=== PATIENT | female | born 1985 | race Caucasian/White ===

== ENCOUNTER 2020-09-21 12:20 | Emergency (ER) | payer SELFPAY ==
[~2020-09-21 12:20] MED LIST: Iopamidol-370 76% 500 ML 1 ML ONE
[2020-09-21 12:44] LABS: #Basophils 0.1 thou/uL (0.0-0.2); #Eosinphils 0.1 thou/uL (0.0-0.7); #Lymphocytes 2.5 thou/uL (1.20-3.40); #Monocytes 0.6 thou/uL (0.11-0.59); #Neutrophils 7.1 thou/uL (1.40-6.50); %Basophils 0.5 % (0.0-1.0); %Eosinophils 0.7 % (0.0-10.0); %Lymphocytes 23.9 % (21.0-51.0); %Monocytes 5.8 % (0.0-10.0); %Neutrophils 69.1 % (42.0-75.0); Hemoglobin 13.6 g/dL (12.0-16.0); Mean Corpuscular HGB CONC 33.5 g/dL (32.0-36.0); Mean Corpuscular Hemoglobin 29.3 pg (27.0-31.0); Mean Corpuscular Volume 87.4 fL (78.0-98.0); Mean Platelet Volume 10.1 fL (7.4-10.4); Platelet Count 207 thou/uL (130-400); Red Blood Cell (RBC) Count 4.64 mill/uL (4.20-5.40); White Blood Cell (WBC) Count 10.3 thou/uL (4.8-10.8)
[2020-09-21 12:58] LABS: ALT (SGPT) 11 U/L (8-55); AST (SGOT) 10 U/L (5-34); Albumin 3.9 g/dL (3.5-5.0); Alkaline Phosphatase 75 U/L (40-110); Anion Gap 11 mmol/L (10-20); BUN (Urea Nitrogen) 5 mg/dL (7.0-18.7); Bilirubin, Total 0.5 mg/dL (0.2-1.2); Calc. Creatinine Clearance 0 mL/min (70-130); Calcium 8.5 mg/dL (7.8-10.44); Carbon Dioxide 25 mmol/L (22-29); Chloride 105 mmol/L (98-107); Globulin 3.1 g/dL (2.4-3.5); Glucose 90 mg/dL (70-105); Lipase 13 U/L (8-78); Potassium 4.1 mmol/L (3.5-5.1); Sodium 137 mmol/L (136-145)
[2020-09-21] MEDS ORDERED: Morphine 4 MG/ML VIAL ONE (12:59)
[2020-09-21] MEDS ORDERED: Ondansetron PF 4 MG/2 ML Vial ONE (12:59)
[2020-09-21 13:26] LABS: Bacteria/HPF 3+ HPF (None Seen); Bilirubin Negative (Negative); Blood, Urine Negative (Negative); Clarity Turbid (Clear); Glucose, Urine (Dipstick) Normal (Negative); Ketone, Urine Negative (Negative); Leukocyte 500 Leu/uL (Negative); Nitrite 2+ (Negative); Protein, Urine (Dipstick) 10 mg/dL (Neg-Trace); Specific Gravity, Urine 1.014 (1.002-1.036); Urobilinogen Normal mg/dL (Less than 2); WBC/HPF Greater than 50 HPF (0-3)
[2020-09-21 13:27] LABS: Pregnancy Test - Urine (BHCG) Negative (Negative); Pregu Control Background? CLEAR/WHITE (CLR/WHITE); Pregu Control Bar Appear? YES (CONTROL BAR); Specific Gravity 1.014 (1.002-1.036)
--- NOTE | 2020-09-21 14:19 | CT ---
EXAM: Abdomen and pelvic CT scan with contrast: HISTORY: Right lower quadrant pain COMPARISON: None FINDINGS: Lungs:No significant acute process. Liver: Unremarkable. Gallbladder:Unremarkable. Common bile duct:Normal Pancreas:Unremarkable Spleen:Unremarkable. Adrenal glands:Unremarkable. Kidneys:No renal calculus or acute obstruction. No solid or cystic renal mass. No evidence for bowel obstruction. Aorta:No evidence for aneurysm. Spine:No significant acute process. Normal-appearing appendix The urinary bladder is unremarkable. Reproductive system:IUD within the uterus. 3.1 cm diameter left ovarian functional follicle cyst. Hernias:None No abscess, adenopathy, or abnormal fluid collection within the abdomen or pelvis. IMPRESSION: No significant acute process in the abdomen or pelvis.
[2020-09-21] MEDS ORDERED: cefTRIAXone\\ROCEPHIN 1 GM VIAL ONE (14:30)
--- NOTE | 2020-09-21 15:42 | ULT ---
Pelvic sonogram transabdominal imaging with duplex evaluation HISTORY: Pelvic pain. Ovarian cyst. FINDINGS: Urinary bladder is unremarkable. Uterus has a heterogeneous echotexture and measures up to 9.7 cm. Endometrium is 0.8 cm. Echogenic structure in the endometrial cavity is consistent with an IUD. No free fluid evident within the pelvis. Right ovary not visualized with transabdominal or transvaginal imaging. No masses evident. Lobular complex cyst of the left ovary measures up to 4.8 cm x 3.9 cm x 3.6 cm.. Some internal debris . Good color and spectral Doppler flow demonstrated within the left ovary. IMPRESSION : Large hemorrhagic left ovarian cyst, 4.8 cm. Intrauterine contraceptive device.
== END 2020-09-21 16:25 | disposition home or self-care (01) ==
LOC: ERS 12:20
DX: N39.0 Urinary tract infection, site not specified (principal); N83.202 Unspecified ovarian cyst, left side
CPT/HCPCS: 36415; 74177; 76856; 80053; 81003; 81015; 81025; 83690; 85025; 96365; 96375; J0696; J2270; J2405; Q9967

== ENCOUNTER 2020-11-11 17:09 | Emergency (ER) | payer SELFPAY ==
--- NOTE | 2020-11-11 17:52 | RAD ---
TWO VIEWS OF THE CHEST: 11/11/20 HISTORY: Mid sternal chest pain for two weeks. FINDINGS: Two views of the chest show normal sized cardiomediastinal silhouette. There is no evidence of consol idation, mass, or pleural effusion. The bones are unremarkable. IMPRESSION: No evidence of acute cardiopulmonary disease. POS: EAA
[2020-11-11 18:39] LABS: #Basophils 0.1 thou/uL (0.0-0.2); #Eosinphils 0.1 thou/uL (0.0-0.7); #Lymphocytes 2.7 thou/uL (1.20-3.40); #Monocytes 0.6 thou/uL (0.11-0.59); #Neutrophils 5.8 thou/uL (1.40-6.50); %Basophils 0.6 % (0.0-1.0); %Eosinophils 1.2 % (0.0-10.0); %Lymphocytes 29.3 % (21.0-51.0); %Monocytes 6.4 % (0.0-10.0); %Neutrophils 62.5 % (42.0-75.0); Mean Corpuscular HGB CONC 32.4 g/dL (32.0-36.0); Mean Corpuscular Hemoglobin 27.9 pg (27.0-31.0); Mean Platelet Volume 10.1 fL (7.4-10.4); Platelet Count 233 thou/uL (130-400); RBC Distribution Width 11.3 % (11.5-14.5); Red Blood Cell (RBC) Count 5.02 mill/uL (4.20-5.40); White Blood Cell (WBC) Count 9.2 thou/uL (4.8-10.8)
[2020-11-11] MEDS ORDERED: Ketorolac Tromethamine 30 MG/ML VIAL ONE (19:01)
--- NOTE | 2020-11-11 19:06 | CT ---
CTA Angio Chest W WO Con 11/11/2020 6:50 PM Indication: 35-year-old female with midsternal chest pain for 2 weeks Technique: Multiple CTA images were obtained of the thorax with IV contrast. 3-D rendering: MIP jamari nstructed images were created and reviewed. Comparison: No relevant prior studies available. Findings: Pulmonary arteries: No central or segmental pulmonary embolus is evident. Heart and Aorta: Normal appearing. Mediastinum:Normal appearing. No enlarged lymph nodes. Lungs:The lungs are clear. Pleural space: Clear. Upper Abdomen: No acute abnormality. Osseous Structures: No acute osseous abnormality. Soft tissues:No abnormality. Other findings:None. Impression: No central or segmental pulmonary embolus.
[2020-11-11 19:08] LABS: ALT (SGPT) 12 U/L (8-55); AST (SGOT) 14 U/L (5-34); Albumin 4.6 g/dL (3.5-5.0); Alkaline Phosphatase 99 U/L (40-110); Anion Gap 11 mmol/L (10-20); BUN (Urea Nitrogen) 8 mg/dL (7.0-18.7); Bilirubin, Total 0.3 mg/dL (0.2-1.2); Calc. Creatinine Clearance 0 mL/min (70-130); Calcium 9.5 mg/dL (7.8-10.44); Carbon Dioxide 27 mmol/L (22-29); Chloride 104 mmol/L (98-107); Globulin 3.2 g/dL (2.4-3.5); Glucose 86 mg/dL (70-105); Potassium 4.2 mmol/L (3.5-5.1); Protein, Total 7.8 g/dL (6.0-8.3); Sodium 138 mmol/L (136-145)
== END 2020-11-11 19:17 | disposition home or self-care (01) ==
LOC: ERS 17:09
DX: R09.1 Pleurisy (principal)
CPT/HCPCS: 36415; 71046; 71275; 80053; 84484; 85025; 93005; 96374; J1885; Q9967

== ENCOUNTER 2021-05-11 19:18 | Emergency (ER) | payer SELFPAY ==
[2021-05-11 20:17] LABS: #Eosinphils 0.1 thou/uL (0.0-0.7); #Lymphocytes 2.6 thou/uL (1.20-3.40); #Monocytes 0.5 thou/uL (0.11-0.59); %Basophils 0.3 % (0.0-1.0); %Eosinophils 0.9 % (0.0-10.0); %Lymphocytes 22.9 % (21.0-51.0); %Monocytes 4.6 % (0.0-10.0); %Neutrophils 71.4 % (42.0-75.0); Hemoglobin 14.9 g/dL (12.0-16.0); Mean Corpuscular HGB CONC 34.8 g/dL (32.0-36.0); Mean Corpuscular Hemoglobin 29.9 pg (27.0-31.0); Mean Corpuscular Volume 85.9 fL (78.0-98.0); Mean Platelet Volume 9.6 fL (7.4-10.4); Platelet Count 256 thou/uL (130-400); RBC Distribution Width 11.4 % (11.5-14.5); Red Blood Cell (RBC) Count 4.99 mill/uL (4.20-5.40); White Blood Cell (WBC) Count 11.2 thou/uL (4.8-10.8)
[2021-05-11 20:41] LABS: ALT (SGPT) 15 U/L (8-55); AST (SGOT) 14 U/L (5-34); Albumin 4.6 g/dL (3.5-5.0); Alkaline Phosphatase 108 U/L (40-110); Anion Gap 11 mmol/L (10-20); BUN (Urea Nitrogen) 7 mg/dL (7.0-18.7); Bilirubin, Total 0.3 mg/dL (0.2-1.2); Calc. Creatinine Clearance 0 mL/min (70-130); Calcium 9.9 mg/dL (7.8-10.44); Carbon Dioxide 25 mmol/L (22-29); Chloride 107 mmol/L (98-107); Globulin 3.5 g/dL (2.4-3.5); Glucose 89 mg/dL (70-105); Potassium 4.1 mmol/L (3.5-5.1); Protein, Total 8.1 g/dL (6.0-8.3); Sodium 139 mmol/L (136-145)
[2021-05-11 21:12] LABS: Pregnancy Test - Urine (BHCG) Negative (Negative)
[2021-05-11 21:13] LABS: Pregu Control Background? CLEAR/WHITE (CLR/WHITE); Pregu Control Bar Appear? YES (CONTROL BAR)
[2021-05-11 21:16] LABS: Bacteria/HPF 4+ HPF (None Seen); Bilirubin Negative (Negative); Blood, Urine Negative (Negative); Clarity Turbid (Clear); Glucose, Urine (Dipstick) Normal (Negative); Ketone, Urine Negative (Negative); Leukocyte 500 Leu/uL (Negative); Nitrite 2+ (Negative); Protein, Urine (Dipstick) 10 mg/dL (Neg-Trace); RBC/HPF 0-3 HPF (0-3); Specific Gravity 1.022 (1.002-1.036); Specific Gravity, Urine 1.022 (1.002-1.036); Urobilinogen Normal mg/dL (Less than 2); WBC/HPF Greater than 50 HPF (0-3); pH, Urine 5.5 (5.0-9.0)
== END 2021-05-12 01:28 | disposition home or self-care (01) ==
LOC: ERS 19:18
DX: N39.0 Urinary tract infection, site not specified (principal)
CPT/HCPCS: 36415; 71045; 80053; 81003; 81015; 81025; 85025; 93005

== ENCOUNTER 2021-05-27 06:37 | Emergency (ER) | payer SELFPAY ==
[2021-05-27] MEDS ORDERED: Triple Antibiotic Oint 1 GM Packet ONE (09:36)
[2021-05-27] MEDS ORDERED: Ketorolac Tromethamine 30 MG/ML VIAL ONE (09:36)
== END 2021-05-27 10:05 | disposition home or self-care (01) ==
LOC: ERS 06:37
DX: S93.402A Sprain of unspecified ligament of left ankle, initial encounter (principal); W10.9XXA Fall (on) (from) unspecified stairs and steps, initial encounter
CPT/HCPCS: 96372; J1885

== ENCOUNTER 2021-09-02 16:56 | Emergency (ER) | payer SELFPAY ==
[2021-09-02 19:31] LABS: #Eosinphils 0.1 thou/uL (0.0-0.7); #Lymphocytes 2.3 thou/uL (1.20-3.40); #Monocytes 0.5 thou/uL (0.11-0.59); #Neutrophils 6.3 thou/uL (1.40-6.50); %Basophils 0.3 % (0.0-1.0); %Eosinophils 0.8 % (0.0-10.0); %Lymphocytes 24.6 % (21.0-51.0); %Monocytes 5.4 % (0.0-10.0); %Neutrophils 68.9 % (42.0-75.0); Hemoglobin 14.5 g/dL (12.0-16.0); Mean Corpuscular HGB CONC 33.1 g/dL (32.0-36.0); Mean Corpuscular Hemoglobin 28.5 pg (27.0-31.0); Mean Platelet Volume 9.6 fL (7.4-10.4); Platelet Count 183 thou/uL (130-400); RBC Distribution Width 11.8 % (11.5-14.5); Red Blood Cell (RBC) Count 5.09 mill/uL (4.20-5.40); White Blood Cell (WBC) Count 9.2 thou/uL (4.8-10.8)
[2021-09-02 19:56] LABS: ALT (SGPT) 10 U/L (8-55); AST (SGOT) 11 U/L (5-34); Albumin 3.9 g/dL (3.5-5.0); Alkaline Phosphatase 85 U/L (40-110); Anion Gap 13 mmol/L (10-20); BUN (Urea Nitrogen) 7 mg/dL (7.0-18.7); Bilirubin, Total 0.4 mg/dL (0.2-1.2); Calc. Creatinine Clearance 0 mL/min (70-130); Calcium 9.2 mg/dL (7.8-10.44); Carbon Dioxide 22 mmol/L (22-29); Chloride 106 mmol/L (98-107); Globulin 3.4 g/dL (2.4-3.5); Glucose 84 mg/dL (70-105); Potassium 3.8 mmol/L (3.5-5.1); Protein, Total 7.3 g/dL (6.0-8.3); Sodium 137 mmol/L (136-145)
[2021-09-02 20:49] LABS: Pregnancy Test - Urine (BHCG) Negative (Negative); Pregu Control Background? CLEAR/WHITE (CLR/WHITE); Pregu Control Bar Appear? YES (CONTROL BAR)
[2021-09-02 20:51] LABS: Specific Gravity 1.017 (1.002-1.036)
[2021-09-02 20:52] LABS: Bacteria/HPF 4+ HPF (None Seen); Bilirubin Negative (Negative); Blood, Urine Negative (Negative); Clarity Turbid (Clear); Glucose, Urine (Dipstick) Normal (Negative); Ketone, Urine Negative (Negative); Leukocyte 500 Leu/uL (Negative); Nitrite 1+ (Negative); Protein, Urine (Dipstick) 20 mg/dL (Neg-Trace); Specific Gravity, Urine 1.017 (1.002-1.036); Squamous Epithelial 21-50 HPF (0-3); Urobilinogen Normal mg/dL (Less than 2); WBC/HPF Greater than 50 HPF (0-3)
== END 2021-09-02 21:46 | disposition home or self-care (01) ==
LOC: ERS 16:56
DX: N39.0 Urinary tract infection, site not specified (principal); R55 Syncope and collapse; Z79.899 Other long term (current) drug therapy
CPT/HCPCS: 36415; 70450; 80053; 81003; 81015; 81025; 85025; 93005

== ENCOUNTER 2024-07-20 11:01 | Emergency (ER) | payer SELFPAY ==
[2024-07-20] MEDS ORDERED: Lidocaine 1% PF 5 ML VIAL ONE (11:58)
[2024-07-20] MEDS ORDERED: Bacitracin 1 PK ONE (12:42)
== END 2024-07-20 13:35 | disposition home or self-care (01) ==
LOC: ERS 11:01
DX: S61.210A Laceration without foreign body of right index finger without damage to nail, initial encounter (principal); W26.0XXA Contact with knife, initial encounter; Y93.89 Activity, other specified
CPT/HCPCS: 12001; 99282

== ENCOUNTER 2024-09-23 15:38 | Emergency (ER) | payer SELFPAY ==
[2024-09-23] MEDS ORDERED: Lorazepam 2 MG/ML VIAL ONE (16:16)
[2024-09-23] MEDS ORDERED: Dexamethasone 10 MG/ML VIAL ONE (16:16)
[2024-09-23] MEDS ORDERED: diphenhydrAMINE 50 MG/ML VIAL ONE (16:16)
== END 2024-09-23 17:22 | disposition home or self-care (01) ==
LOC: ERS 15:38
DX: M54.9 Dorsalgia, unspecified (principal); T40.425A Adverse effect of tramadol, initial encounter
CPT/HCPCS: 96374; 96375; J1100; J1200; J2060

== ENCOUNTER 2025-04-25 09:29 | Emergency (ER) | payer OTHER, SELFPAY ==
[2025-04-25] MEDS ORDERED: HYDROcodone/Acetaminophen 5/325 mg Tablet ONE (10:26)
[2025-04-25] MEDS ORDERED: Bacitracin 1 PK ONE (10:40)
[2025-04-25] MEDS ORDERED: Ketorolac Tromethamine 30 MG (1 mL) VIAL ONE (14:26)
[2025-04-25] MEDS ORDERED: Cyclobenzaprine 10 MG TAB ONE (14:26)
== END 2025-04-25 10:55 | disposition home or self-care (01) ==
LOC: ERS 09:29
DX: S89.92XA Unspecified injury of left lower leg, initial encounter (principal); S80.812A Abrasion, left lower leg, initial encounter; S80.811A Abrasion, right lower leg, initial encounter; V86.95XA Unspecified occupant of 3- or 4- wheeled all-terrain vehicle (ATV) injured in nontraffic accident, initial encounter
CPT/HCPCS: 99283; J1885